=== PATIENT | female | born 1975 | race Caucasian/White ===

== ENCOUNTER 2025-03-07 10:03 | Outpatient (CLI) | payer MEDICAID, SELFPAY ==
--- NOTE | 2025-03-07 10:30 | DI.RAD_ITS ---
Exam(s) XR LUMBAR SPINE COMP W FLEX/EX EXAM: XR LUMBAR SPINE COMP W FLEX/EX CLINICAL HISTORY: pain M43.16 SPONDYLILISTHESIS LUMBAR REGION. TECHNIQUE: 2D digital imaging was performed of the lumbar spine. Seven images were obtained. AP, lateral, flexion, extension, right oblique, left oblique and L5-S1 spot views were obtained. COMPARISON: MR MR LS SPINE WO CONTRAST from 01/27/2025 FINDINGS: BONES: No fracture or destructive lesion. Vertebral bodies are unremarkable. There is facet arthropathy at L4-5 and L5-S1. DISKS: There is marked disc space narrowing at L5-S1. ALIGNMENT: There is grade 2 anterolisthesis of L5 on S1. It measures 1.4 cm on the neutral lateral position. It is unchanged with flexion or extension. There is bilateral L5 spondylolysis. SOFT TISSUE: There are surgical clips in the right upper quadrant of the abdomen. IMPRESSION: Grade 2 anterolisthesis of L5 on S1 which is unchanged with flexion or extension. DATA REPOSITORY: RADIATION DOSE DELIVERED:
== END 2025-03-07 10:23 ==
LOC: DI 10:04
PROVIDERS: PCP Family Medicine; Visit Provider Anesthesiology Pain Medicine
DX: M43.16 Spondylolisthesis, lumbar region (principal)
CPT/HCPCS: 72114

== ENCOUNTER 2025-03-15 10:08 | Outpatient (CLI) | payer MEDICAID, SELFPAY ==
--- NOTE | 2025-03-15 06:00 | DI.RAD_ITS ---
Exam(s) XR PAIN CLINIC LUMBAR SP 2V EXAM: XR PAIN CLINIC LUMBAR SP 2V CLINICAL HISTORY: DX: Lumbar Spondylosis. TECHNIQUE: Fluoroscopy was provided for the referring physician for guidance with performing pain clinic injection procedure. COMPARISON: No exams were available for comparison FINDINGS: Please see procedure note for details. Fluoro time: 47.7 seconds RADIATION DOSE DELIVERED: cait Couch=39.8 mGy
--- NOTE | 2025-03-15 10:17 | PDOC.PAIN ---
Date of service: 03/15/25 Time of Service: 11:12 Pain Managment Procedure Note Procedure Note Procedure Note: Diagnostic Lumbar Facet Joint Injection ? Location: Bilateral Lumbar Facet Joints ? Levels: L5-S1 ? 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 Post-procedure Diagnosis:? The same as above ? Sedation:? None ? Estimated blood loss:? less than 2 cc ? Surgeon: Sarbjit Figueroa MD COMMENT: /10 .Decision was made to proceed with intra-articular facet injections for the possibility of not having to do medial branch blocks and radiofrequency ablation if patient get long lasting relief (> 3 months). Patient had flexion-extension x-rays of her lumbar spine which showed no instability. Discussed this with patient. Patient has grade 2 spondylolisthesis at L5-S1 ? Procedure Detail:? The procedure and potential risks were explained to the patient and informed written consent was obtained. The patient was escorted to the procedure room and placed in the prone position. Pillows were utilized for proper positioning and comfort.? Time out was performed in the procedure room with nursing staff confirming the patient's identity, procedure to be performed, allergies, and any blood thinning or anti-platelet medications.? Sterile technique was maintained throughout the procedure.? The patient's lumbosacral area was prepped with chlorhexidine and draped in a sterile fashion. Lidocaine 1% was used to anesthetize the skin. An oblique fluoroscopic view was obtained, with visualization of the facet joint.? A 22gauge, Quincke needle was gently advanced through the facet capsule.? Needle placement was confirmed with fluoroscopy in AP, oblique, and lateral views by injecting 0.25cc of contrast.? 20 mg of Depomedrol and 0.5ml of 0.5% bupivacaine was injected into the capsule at [ ] [Right] [Left] [Bilateral]. [This was repeat at ] [ ] [Right] [Left] [Bilateral]? The patient tolerated the procedure well and was discharged home with instructions. Permanent images saved and recorded. Plan:? Follow up prn COMMENT:Pain went from 7/10 to 7/10 on left 0/10 right. Pain? 50 % better. [Will use this as both diagnostic and potentially therapeutic.? With short-term relief from the level that it was not long-lasting then we will proceed with for LMBB #2 and possible radiofrequency ablation] Patient also has some foraminal stenosis on MRI and could proceed with epidural steroid injection if symptoms are radicular.. Would do a caudal approach as access to foramen would be very difficult.. Coding Conscious Sedation used for procedure: No CPT Codes: LMBB (includes Fluoro) Lumbar/Sacral, single lvl *BILATERAL* - [id number] ([id number]~G5) Additional Codes: Date of Service (37115) Date of service: 03/15/25 Diagnoses: M47.817 Spondylosis without myelopathy or radiculopathy, lumbosacral region M47.816 Spondylosis without myelopathy or radiculopathy, lumbar region
[2025-03-15 10:24] VITALS: BP 129/76; PULSE 70; RESP 18; TEMP 36.1; O2SAT 97
[2025-03-15 10:50] VITALS: PULSE 71; O2SAT 94
[2025-03-15 11:00] VITALS: PULSE 74; O2SAT 96
[2025-03-15] MEDS: Omnipaque 240 MG/ML 50 ML BTL IJ (11:12)
[2025-03-15] MEDS: methylPREDNISolone ACETATE 80 MG/ML VIAL IJ (11:12)
[2025-03-15] MEDS: Bupivacaine 0.5% Pres-Free 10 ML VIAL IJ (11:12)
== END 2025-03-15 10:09 | disposition home or self-care (01) ==
LOC: PC 10:08
PROVIDERS: PCP Family Medicine; Visit Provider Anesthesiology Pain Medicine
DX: M47.816 Spondylosis without myelopathy or radiculopathy, lumbar region (principal); M47.817 Spondylosis without myelopathy or radiculopathy, lumbosacral region
CPT/HCPCS: 64493; 72100; J0665; J1010; Q9967

== ENCOUNTER 2025-04-19 12:06 | Outpatient (CLI) | payer MEDICAID, SELFPAY ==
[2025-04-19 12:12] VITALS: BP 144/93; PULSE 78; RESP 20; TEMP 37; O2SAT 96
[2025-04-19 12:37] VITALS: PULSE 73; O2SAT 97
[2025-04-19 12:40] VITALS: PULSE 68; O2SAT 98
--- NOTE | 2025-04-19 12:49 | PDOC.PAIN_ITS ---
Date of service: 04/19/25 Time of Service: 12:54 Pain Managment Procedure Note Procedure Note Procedure Note: Lumbar Medial Branch Block Location: Bilateral Medial Branches Levels: L 4,5 ( L5-S1 FACET) Pre-procedure Diagnosis: M47.817 Spondylosis without myelopathy or radiculopathy, lumbosacral region M47.816 Spondylosis without myelopathy or radiculopathy, lumbar region Post-procedure Diagnosis: The same as above Sedation: NONE Estimated blood loss: less than 2 ml Surgeon: Sarbjit Figueroa MD COMMENT: Patient had previous intra-articular facet injection at L5-S1 with good but transient relief. She has a grade 2 spondylolisthesis at L5-S1 Procedure Detail: The procedure and potential risks were explained to the patient and informed written consent was obtained. The patient was escorted to the procedure room and placed in the prone position. Pillows were utilized for proper positioning and comfort. Time out was performed in procedure room with nursing staff confirming the patient's identity, procedure to be performed, allergies, and any blood thinning or anti-platelet medications. The patient's lower back was prepped with chlorhexidine and draped in a sterile fashion. Sterile technique was maintained throughout the procedure. Sterile gloves were used, a face mask was worn, and new single dose vials of all medications were used with the top being swabbed with alcohol and given time to dry prior to withdrawal of medication. A left AND right-sided oblique fluoroscopic view was obtained, with visualization of the: RIGHT and LEFT L4 and DORSAL RAMUS L5 AT SACRAL ALA junction of the transverse process and superior articular process. Lidocaine 1% was used to anesthetize the skin. A 22-gauge Quincke needle was advanced along the superior margin of the transverse process and lateral to the articular process. It was directed inferiorly and medially so that the tip struck the junction of the base of the transverse process and the superior articular process. The needle was then walked over the superior aspect of the transverse process and advanced slightly along the course of the L4,5next 4 hours medial branch nerves. Proper placement was verified in A/P, oblique and lateral views under fluoroscopy. At this location, following negative aspiration, 0.5ml 0.5% bupivacaine was injected. The patient tolerated the procedure well and was tr ansported to the recovery area for observation and discharge instructions. Permanent images saved and recorded. Follow-up: Will plan to proceed with lumbar medial branch RFA if the patient gets good relief from today's procedure lasting for at least 2 hours. COMMENT:Pain went from 7/10 to 5/10. Before the patient left patient had greater than []% pain relief. Patient might be a candidate for basivertebral nerve ablation at L5-S1 as she has Modic changes though this would be difficult with her grade 2 spondylolisthesis. Coding Conscious Sedation used for procedure: No CPT Codes: LMBB (includes Fluoro) Lumbar/Sacral, 2nd lvl - 07042 ([id number] ~G) RT - RIGHT SIDE, LT - LEFT SIDE LMBB (includes Fluoro) Lumbar/Sacral, single lvl *BILATERAL* - [id number] ([id number]~G5) 50 - BILATERAL PROCEDURE Additional Codes: Date of Service () Diagnoses: M47.817 Spondylosis without myelopathy or radiculopathy, lumbosacral region M47.816 Spondylosis without myelopathy or radiculopathy, lumbar region
--- NOTE | 2025-04-19 12:51 | DI.RAD_ITS ---
Exam(s) XR PAIN CLINIC LUMBAR SP 2V EXAM: XR PAIN CLINIC LUMBAR SP 2V CLINICAL HISTORY: Dx: Lumbar Spondylosis TECHNIQUE: 2D and realtime digital imaging was performed. CONTRAST MATERIAL: Refer to procedure report. COMPARISON: No exams were available for comparison FINDINGS: Fluoroscopy was provided for Dr. Figueroa during the performance of a bilateral lumbar medial branch block. Please refer to the procedure report for complete details. Ka,r=10.8 mGy IMPRESSION: RADIATION DOSE DELIVERED: 0.0 0.0 0
[2025-04-19] MEDS: Nerve Block Tray 1 EACH MC (13:01)
[2025-04-19] MEDS: Bupivacaine 0.5% Pres-Free 10 ML VIAL IJ (13:02)
== END 2025-04-19 12:07 | disposition home or self-care (01) ==
PROVIDERS: PCP Family Medicine; Visit Provider Anesthesiology Pain Medicine
DX: M47.816 Spondylosis without myelopathy or radiculopathy, lumbar region (principal); M47.817 Spondylosis without myelopathy or radiculopathy, lumbosacral region
CPT/HCPCS: 64493; 64494; 72100; J0665

== ENCOUNTER 2025-05-09 12:51 | Outpatient (CLI) | payer MEDICAID, SELFPAY ==
[2025-05-09] VITALS (17 sets, daily range): BP systolic 140–186; BP diastolic 80–104; PULSE 74–83; RESP 0–20; TEMP 37.2; O2SAT 92–99
[2025-05-09] MEDS: Midazolam 2 MG/2 ML VIAL IVP ×2 (13:31→13:40)
[2025-05-09] MEDS: fentaNYL 100 MCG/2 ML VIAL IVP ×2 (13:31→13:40)
[2025-05-09] MEDS: Lactated Ringers 500 ML 80 ML IV (13:44)
[2025-05-09] MEDS: Lidocaine 2% Multi-Dose 20 ML VIAL IJ (14:14)
[2025-05-09] MEDS: Nerve Block Tray 1 EACH MC (14:14)
--- NOTE | 2025-05-09 14:15 | DI.RAD_ITS ---
Exam(s) XR PAIN CLINIC LUMBAR SP 2V EXAM: XR PAIN CLINIC LUMBAR SP 2V CLINICAL HISTORY: DX: Lumbar Spondylosis. TECHNIQUE: Fluoroscopy was provided for the referring physician for guidance with performing pain clinic injection procedure. COMPARISON: No exams were available for comparison FINDINGS: Please see procedure note for details. Fluoro time: 61.7 seconds RADIATION DOSE DELIVERED: cait Couch=41.6 mGy
--- NOTE | 2025-05-09 14:34 | PDOC.PAIN ---
Date of service: 05/09/25 Time of Service: 14:37 Pain Managment Procedure Note Procedure Note Procedure Note: Lumbar Medial Branch COOLED Radiofrequency Ablation COMMENT: Patient had greater than 80 % relief after 2 medial branch blocks . ? Location: Bilateral L3, and L4 medial Branches and dorsal ramus of L5 (L4-5, and L5-S1 joints) ? Pre-procedure Diagnosis: M47.817 Spondylosis without myelopathy or radiculopathy, lumbosacral region ? Post-procedure Diagnosis:? The same as above ? Sedation:?Intravenous line started 1.5 mg of intravenous midazolam and fentanyl 75 mcg?were administered. An independent trained observer monitored the patient for the duration of the procedure.? Estimated blood loss:? less than 2 ml ? Surgeon: Sarbjit Figueroa MD ? Procedure Detail:? The procedure and potential risks were explained to the patient and informed written consent was obtained. The patient was escorted to the procedure room and placed in the prone position. Pillows were utilized for proper positioning and comfort. Time out was performed in the procedure room with nursing staff confirming the patient's identity, procedure to be performed, allergies, and any blood thinning or anti-platelet medications. The patient's lower back was prepped with ChloraPrep and draped in a sterile fashion.? Sterile technique was maintained throughout the procedure.? Sterile gloves were used, a face mask was worn, and new single dose vials of all medications were used with the top being swabbed with alcohol and given time to dry prior to withdrawal of medication. A left AND right-sided oblique fluoroscopic view was obtained, with visualization of the L4 junction of the transverse process and superior articular process. 2% lidocaine was used to anesthetize the skin. With fluoroscopic guidance, an 17 gauge 4mm active tip RF cannula was advanced to the superior margin of the transverse process and lateral to the superior articular process.? It was directed inferiorly and medially so that the tip struck the junction of the base of the transverse process and the superior articular process. The needle was then slightly advanced along the course of the L3 medial branch nerve. Proper placement was verified with oblique, AP, and lateral fluoroscopic views. Sensory tested with good response less than 1V. Motor testing was performed and was negative at 2V except for expected multifidus activation. A similar procedure was also performed at the ipsilateral L4 medial branch nerves and the dorsal ramus of L5 with negative motor testing at 2V except for expected multifidus activation. 1 ml of 2% lidocaine was injected through each needle tip to anesthetize the medial branch nerves.? After waiting for the local anesthetic to take effect, each nerve was then ablated at 60 degrees Celsius for 150 seconds. This was repeated on the opposite side at the same levels. The patient was monitored for any severe pain or radicular pain during the ablation and reported none. The patient tolerated the procedure well, and was discharged in stable condition.? Permanent images were saved and recorded. PAIN: PRE PROCEDURE 11/30 POST PROCEDURE 01/30 Plan: F/U PRN COMMENT: Repeat prn if 6 months relief of 50% Coding Conscious Sedation used for procedure: Yes CPT Codes: Single Facet Joint, Lumbar/Sacral *BILATERAL* - 790108D ([id number]~G) 50 - BILATERAL PROCEDURE Single Facet Joint, Lumbar/Sacral cool each add'l - 60443W ([id number]~G) LT - LEFT SIDE, RT - RIGHT SIDE Moderate sedation; First 15 min - 93726 (48725) Moderate sedation; add. 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
== END 2025-05-09 12:52 | disposition home or self-care (01) ==
LOC: PC 12:51
PROVIDERS: PCP Family Medicine; Visit Provider Anesthesiology Pain Medicine
DX: M47.817 Spondylosis without myelopathy or radiculopathy, lumbosacral region (principal)
CPT/HCPCS: 64635; 64636; 72100; J2003; J2250; J3010